=== PATIENT | male | born 1975 | race Caucasian/White ===

== ENCOUNTER 2019-08-13 10:48 | Emergency (ER) | payer OTHER ==
[~2019-08-13] VITALS: Ht 172.7 cm; Wt 72.6 kg
[2019-08-13] MEDS ORDERED: IBU800 MG PO (11:09)
[2019-08-13] MEDS ORDERED: METHOCARBAMOL500 M2 PO (11:09)
[2019-08-13] MEDS ORDERED: NORCO 5-325 TA1 EAC1 PO (11:48)
[2019-08-13] MEDS ORDERED: MEDROLDOSEPACK PO (11:48)
[2019-08-13 13:01] VITALS: BP 148/90
== END 2019-08-13 13:01 | disposition home or self-care (01) ==
LOC: M.ERS 10:48
DX: S39.012A Strain of muscle, fascia and tendon of lower back, initial encounter (principal); M54.41 Lumbago with sciatica, right side; M51.36 Other intervertebral disc degeneration, lumbar region; F17.210 Nicotine dependence, cigarettes, uncomplicated; X50.1XXA Overexertion from prolonged static or awkward postures, initial encounter; Y93.89 Activity, other specified; Y92.89 Other specified places as the place of occurrence of the external cause; Y99.0 Civilian activity done for income or pay

== ENCOUNTER 2019-10-22 10:43 | Emergency (ER) | payer OTHER ==
[~2019-10-22] VITALS: Ht 172.7 cm; Wt 77.1 kg
[~2019-10-22 10:43] MED LIST: IBU800 MG PO; MEDROLDOSEPACK PO; METHOCARBAMOL500 M2 PO; NORCO 5-325 TA1 EAC1 PO
[2019-10-22] MEDS ORDERED: KEFLEX500 M1 PO (11:55)
[2019-10-22 12:02] VITALS: BP 136/91
== END 2019-10-22 12:03 | disposition home or self-care (01) ==
LOC: M.ERS 10:43
DX: S60.414A Abrasion of right ring finger, initial encounter (principal); X58.XXXA Exposure to other specified factors, initial encounter; Y93.89 Activity, other specified; Y92.89 Other specified places as the place of occurrence of the external cause; Y99.8 Other external cause status

== ENCOUNTER 2020-03-23 16:13 | Emergency (ER) | payer OTHER ==
[~2020-03-23] VITALS: Ht 170.2 cm; Wt 68.0 kg
[~2020-03-23 16:13] MED LIST changes: +KEFLEX500 M1 PO
[2020-03-23] MEDS ORDERED: NORCO 5-325 TA1 EAC1 PO (18:01)
[2020-03-23 18:31] VITALS: BP 124/72
== END 2020-03-23 18:32 | disposition home or self-care (01) ==
LOC: M.ERS 16:13
DX: M19.011 Primary osteoarthritis, right shoulder (principal)

== ENCOUNTER → 2020-05-22 | Outpatient (CLI) | payer OTHER | LOC: M.LAB 09:56 | PROVIDERS: ATTEND Orthopaedic Surgery | DX: Z01.812 Encounter for preprocedural laboratory examination (principal); Z11.59 Encounter for screening for other viral diseases ==

== ENCOUNTER 2020-09-07 14:36 | Emergency (ER) | payer OTHER ==
[~2020-09-07] VITALS: Ht 172.7 cm; Wt 68.0 kg
[2020-09-07] MEDS ORDERED: NORCO 5-325 TA1 EAC2 PO (15:16)
[2020-09-07] MEDS ORDERED: FLEXERIL PO (15:16)
[2020-09-07] MEDS ORDERED: MEDROLDOSEPACK PO (15:16)
[2020-09-07 15:20] VITALS: BP 149/82
== END 2020-09-07 15:20 | disposition home or self-care (01) ==
LOC: M.ERS 14:36
DX: M54.31 Sciatica, right side (principal)

== ENCOUNTER 2021-09-26 08:32 | Emergency (ER) | payer OTHER ==
[~2021-09-26] VITALS: Ht 172.7 cm; Wt 70.3 kg
[~2021-09-26 08:32] MED LIST changes: +FLEXERIL PO; +NORCO 5-325 TA1 EAC2 PO
[2021-09-26] MEDS ORDERED: FLEXERIL PO (10:16)
[2021-09-26] MEDS ORDERED: IBUPROFEN 800800 M1 PO (10:16)
[2021-09-26 10:23] VITALS: BP 150/89
== END 2021-09-26 10:26 | disposition home or self-care (01) ==
LOC: M.ERS 08:32
DX: S16.1XXA Strain of muscle, fascia and tendon at neck level, initial encounter (principal); S46.912A Strain of unspecified muscle, fascia and tendon at shoulder and upper arm level, left arm, initial encounter; V89.2XXA Person injured in unspecified motor-vehicle accident, traffic, initial encounter; Y93.89 Activity, other specified; Y92.89 Other specified places as the place of occurrence of the external cause; Y99.8 Other external cause status